=== PATIENT | male | born 1980 | race Caucasian/White ===

== ENCOUNTER 2018-08-08 03:45 | Observation (INO) | payer OTHER ==
[2018-08-08] MEDS ORDERED: NS 1,000 ML IV ONE (03:56)
[2018-08-08] MEDS ORDERED: ONDANSETRON 4 MG/2 ML VIAL IVP ONE (03:56)
[2018-08-08] MEDS ORDERED: KETOROLAC 15 MG/1 ML SDV IVP ONE (03:56)
--- NOTE | 2018-08-08 04:00 | EDPHY ---
H & P Stated Complaint: ABD PAIN AND VOMITING THIS EVENING Time Seen by Provider: 08/08/18 03:52 HPI/ROS: Chief Complaint: Abdominal pain HPI: 37-year-old male began having diffuse abdominal pain about 7 hr ago. Has been progressively worse. Some nausea vomiting. No diarrhea. Does feel little bit constipated. Does not have a history of similar pain in the past. Currently is a 7/10. Cannot find a position of comfort. It is generalized in his abdomen. There are no aggravating or alleviating factors. No urinary urgency or frequency. No dark urine. No prior abdominal surgeries. ROS: 10 systems were reviewed and were negative except those elements noted in the HPI. PMH: Attention deficit hyperactivity disorder Social History: No smoking, no alcohol, no recreational drug use Family History: non-contributory Physical Exam: Gen: Awake, Alert, uncomfortable appearing HEENT: Nose: no rhinorrhea Eyes: PERRLA, EOMI Mouth: Moist mucosa Neck: Supple, no JVD Chest: nontender, lungs clear to auscultation Heart: S1, S2 normal, no murmur Abd: Soft, moderate generalized tenderness with tenderness in the right side., no guarding Back: no CVA tenderness, no midline tenderness Ext: no edema, non-tender Skin: no rash Neuro: CN II-XII intact, Sensation grossly intact, Strength 5/5 in bilateral upper and lower extremities - Personal History Current Tetanus/Diphtheria Vaccine: Yes Current Tetanus Diphtheria and Acellular Pertussis (TDAP): Yes - Medical/Surgical History Hx Asthma: No Hx Chronic Respiratory Disease: No Hx Diabetes: No Hx Cardiac Disease: No Hx Renal Disease: No Hx Cirrhosis: No Hx Alcoholism: No Hx HIV/AIDS: No Hx Splenectomy or Spleen Trauma: No Other PMH: PT DENIES - Social History Smoking Status: Never smoked Constitutional: Initial Vital Signs Temperature (C) 36.5 C 08/08/18 03:46 Heart Rate 66 08/08/18 03:46 Respiratory Rate 22 H 08/08/18 03:46 Blood Pressure 130/88 H 08/08/18 03:46 O2 Sat (%) 100 08/08/18 03:46 O2 Delivery Mode Room Air Allergies/Adverse Reactions: No Known Allergies Allergy (Unverified 08/08/18 03:49) Home Medications: Medication Instructions Recorded ALPRAZolam [Xanax 0.5 MG (*)] 0.5 mg PO TID 08/08/18 Medical Decision Making - Diagnostics Imaging Results: ABD PEL W IV CONTRAST History: Low abd pain 90cc of [id number] Comparison: None available. Procedure: Multiple axial sections were obtained through the abdomen and pelvis after administration of intravenous contrast. Coronal and sagittal reconstruction images were obtained as well. Findings: Chest base: Lung bases are clear. Abdomen and pelvis: The appendix is fluid-filled enlarged measuring 9 mm in diameter. Equivocal periappendiceal fat stranding. Fluid and air-filled loops of proximal small bowel measuring at upper limits of normal in caliber without a transition point. Scattered small mesenteric lymph nodes that could represent benign reactive adenopathy. The gallbladder contains no radiopaque gallstones. No biliary ductal dilatation. No focal mass lesion is seen in the spleen, pancreas or kidneys. A few small focal calcifications is the left adrenal gland suggesting previous inflammatory change, infection or hemorrhage. No obstructive uropathy. No bladder stone. No acute disease of bone. Impression: 1. Enlarged fluid-filled appendix with equivocal surrounding inflammatory change. 2. Findings suggest appendicitis in the appropriate clinical setting. 3. Findings in proximal small bowel suggestive of adynamic ileus or enteritis. ELECTRONICALLY SIGNED BY: Lani Toussaint MD Aug 08, 2018 5:13:23 AM MDT ED Course/Re-evaluation: 37-year-old male presenting with abdominal pain, white count. CT scan is suggestive of acute appendicitis. I have paged the general surgeon. Ceftriaxone and Flagyl have been ordered. - Data Points Laboratory Results: Laboratory Results 08/08/18 04:09 08/08/18 04:09 08/08/18 08/08/18 08/08/18 05:01 04:09 04:09 WBC 21.83 10^3/uL H 10^3/uL (3.80-9.50) RBC 5.80 10^6/uL 10^6/uL (4.40-6.38) Hgb 17.1 g/dL g/dL (13.7-17.5) Hct 47.4 % % (40.0-51.0) MCV 81.7 fL fL (81.5-99.8) MCH 29.5 pg pg (27.9-34.1) MCHC 36.1 g/dL g/dL (32.4-36.7) RDW 13.5 % % (11.5-15.2) Plt Count 301 10^3/uL 10^3/uL (150-400) MPV 9.5 fL fL (8.7-11.7) Neut % (Auto) 85.1 % H % (39.3-74.2) Lymph % (Auto) 7.4 % L % (15.0-45.0) [place] % (Auto) 6.4 % % (4.5-13.0) Eos % (Auto) 0.4 % L % (0.6-7.6) Baso % (Auto) 0.2 % L % (0.3-1.7) Nucleat RBC Rel Count 0.0 % % (0.0-0.2) Absolute Neuts (auto) 18.56 10^3/uL H 10^3/uL (1.70-6.50) Absolute Lymphs (auto) 1.62 10^3/uL 10^3/uL (1.00-3.00) Absolute Monos (auto) 1.40 10^3/uL H 10^3/uL (0.30-0.80) Absolute Eos (auto) 0.09 10^3/uL 10^3/uL (0.03-0.40) Absolute Basos (auto) 0.05 10^3/uL 10^3/uL (0.02-0.10) Absolute Nucleated RBC 0.00 10^3/uL 10^3/uL (0-0.01) Immature Gran % 0.5 % % (0.0-1.1) Immature Gran # 0.11 10^3/uL H 10^3/uL (0.00-0.10) Sodium 141 mEq/L mEq/L (135-145) Potassium 4.1 mEq/L mEq/L (3.5-5.2) Chloride 103 mEq/L mEq/L (97-110) Carbon Dioxide 22 mEq/l mEq/l (22-31) Anion Gap 16 mEq/L H mEq/L (6-14) BUN 14 mg/dL mg/dL (7-23) Creatinine 1.2 mg/dL mg/dL (0.7-1.3) Estimated GFR > 60 Glucose 110 mg/dL H mg/dL (70-100) Calcium 10.7 mg/dL H mg/dL (8.5-10.4) Phosphorus 3.4 mg/dL mg/dL (2.5-4.5) Total Bilirubin 0.8 mg/dL mg/dL (0.1-1.4) AST 37 IU/L IU/L (17-59) ALT 74 IU/L H IU/L (21-72) Alkaline Phosphatase 88 IU/L IU/L (38-126) Total Protein 8.5 g/dL H g/dL (6.3-8.2) Albumin 5.3 g/dL H g/dL (3.5-5.0) Lipase 92 IU/L IU/L (23-300) Urine Color YELLOW Urine Appearance CLEAR Urine pH 7.0 (5.0-7.5) Ur Specific [place] > 1.060 H (1.002-1.030) Urine Protein NEGATIVE (NEGATIVE) Urine Ketones 2+ H (NEGATIVE) Urine Blood NEGATIVE (NEGATIVE) Urine Nitrate NEGATIVE (NEGATIVE) Urine Bilirubin NEGATIVE (NEGATIVE) Urine Urobilinogen NEGATIVE EU EU (0.2-1.0) Ur Leukocyte Esterase NEGATIVE (NEGATIVE) Urine Glucose NEGATIVE (NEGATIVE) Medications Given: Discontinued Medications Sodium Chloride (Ns) 1,000 mls @ 0 mls/hr IV ONCE ONE; Wide Open PRN Reason: Protocol Stop: 08/08/18 03:57 Last Admin: 08/08/18 04:06 Dose: 1,000 mls Ketorolac Tromethamine (Toradol) 15 mg IVP EDNOW ONE Stop: 08/08/18 03:57 Last Admin: 08/08/18 04:05 Dose: 15 mg Ondansetron HCl (Zofran) 4 mg IVP EDNOW ONE Stop: 08/08/18 03:57 Last Admin: 08/08/18 04:05 Dose: 4 mg Departure - Departure [facility] Clinical Impression: Acute appendicitis Condition: Fair Referrals: NONE *PRIMARY CARE P,. [Primary Care Provider] - As per Instructions
[2018-08-08 04:16] LABS: PLATELET COUNT 301 10^3/uL (150-400)
[2018-08-08] MEDS ORDERED: IOPAMIDOL (ISOVUE-300) 100 ML BTL ONE (04:30)
[2018-08-08] MEDS ORDERED: BUPIVACAINE/EPI 0.25% 30 ML SDV ONE (05:38)
--- NOTE | 2018-08-08 05:44 | PDGENHP ---
History and Physical - Chief Complaint abdominal pain - History of Present Illness Patient is an otherwise healthy 37yo M who presents with acute onset abdominal pain since last evening. Briefly, was in his usual state of health yesterday evening, began to have diffuse abdominal pain with nausea and vomiting. It persisted and worsened which prompted his presentation in the ED. Pain is colicky, sharp, 7/10 in intensity. Worse with deep palpation History Information - Allergies/Home Medication List Allergies/Adverse Reactions: No Known Allergies Allergy (Unverified 08/08/18 03:49) Home Medications: ALPRAZolam [Xanax 0.5 MG (*)] 0.5 mg PO TID 08/08/18 [Last Taken Unknown] I have personally reviewed and updated: family history, medical history, social history, surgical history - Past Medical History no pertinent PMH - Surgical History Reports: no pertinent surgical hx - Family History Positive for: non-pertinent - Social History Smoking Status: Never smoked Additional social history: and son at bedside Review of Systems Review of Systems: ROS: 10pt was reviewed & negative except for what was stated in HPI & below Physical Exam Physical Exam: Temp Pulse Resp BP Pulse Ox 36.7 C 63 16 131/78 H 98 08/08/18 05:27 08/08/18 05:27 08/08/18 05:27 08/08/18 05:27 08/08/18 05:27 Constitutional: no apparent distress, appears nourished, not in pain Eyes: PERRL, anicteric sclera, EOMI Ears, Nose, Mouth, Throat: moist mucous membranes, hearing normal, ears appear normal, no oral mucosal ulcers Cardiovascular: regular rate and rhythym, no murmur, rub, or gallop, No edema Respiratory: no respiratory distress, no rales or rhonchi, clear to auscultation Gastrointestinal: normoactive bowel sounds, no palpable masses, other (TTP in RLQ) Genitourinary: no bladder fullness, no bladder tenderness Skin: warm, normal color, no rashes or abrasions, no fluctuance, no induration, No mottled Musculoskeletal: full muscle strength, no muscle tenderness, normal joint ROM, no joint effusions Psychiatric: interacting appropriately, not anxious, not encephalopathic, thought process linear Lymph, Heme, Immunologic: no cervical LAD, no supraclavicular LAD Lab Data & Imaging Review 08/08/18 04:09 08/08/18 04:09 WBC 21.83 10^3/uL (3.80-9.50) H 08/08/18 04:09 RBC 5.80 10^6/uL (4.40-6.38) 08/08/18 04:09 Hgb 17.1 g/dL (13.7-17.5) 08/08/18 04:09 Hct 47.4 % (40.0-51.0) 08/08/18 04:09 MCV 81.7 fL (81.5-99.8) 08/08/18 04:09 MCH 29.5 pg (27.9-34.1) 08/08/18 04:09 MCHC 36.1 g/dL (32.4-36.7) 08/08/18 04:09 RDW 13.5 % (11.5-15.2) 08/08/18 04:09 Plt Count 301 10^3/uL (150-400) 08/08/18 04:09 MPV 9.5 fL (8.7-11.7) 08/08/18 04:09 Neut % (Auto) 85.1 % (39.3-74.2) H 08/08/18 04:09 Lymph % (Auto) 7.4 % (15.0-45.0) L 08/08/18 04:09 [place] % (Auto) 6.4 % (4.5-13.0) 08/08/18 04:09 Eos % (Auto) 0.4 % (0.6-7.6) L 08/08/18 04:09 Baso % (Auto) 0.2 % (0.3-1.7) L 08/08/18 04:09 Nucleat RBC Rel Count 0.0 % (0.0-0.2) 08/08/18 04:09 Absolute Neuts (auto) 18.56 10^3/uL (1.70-6.50) H 08/08/18 04:09 Absolute Lymphs (auto) 1.62 10^3/uL (1.00-3.00) 08/08/18 04:09 Absolute Monos (auto) 1.40 10^3/uL (0.30-0.80) H 08/08/18 04:09 Absolute Eos (auto) 0.09 10^3/uL (0.03-0.40) 08/08/18 04:09 Absolute Basos (auto) 0.05 10^3/uL (0.02-0.10) 08/08/18 04:09 Absolute Nucleated RBC 0.00 10^3/uL (0-0.01) 08/08/18 04:09 Immature Gran % 0.5 % (0.0-1.1) 08/08/18 04:09 Immature Gran # 0.11 10^3/uL (0.00-0.10) H 08/08/18 04:09 Sodium 141 mEq/L (135-145) 08/08/18 04:09 Potassium 4.1 mEq/L (3.5-5.2) 08/08/18 04:09 Chloride 103 mEq/L (97-110) 08/08/18 04:09 Carbon Dioxide 22 mEq/l (22-31) 08/08/18 04:09 Anion Gap 16 mEq/L (6-14) H 08/08/18 04:09 BUN 14 mg/dL (7-23) 08/08/18 04:09 Creatinine 1.2 mg/dL (0.7-1.3) 08/08/18 04:09 Estimated GFR > 60 08/08/18 04:09 Glucose 110 mg/dL (70-100) H 08/08/18 04:09 Calcium 10.7 mg/dL (8.5-10.4) H 08/08/18 04:09 Phosphorus 3.4 mg/dL (2.5-4.5) 08/08/18 04:09 Total Bilirubin 0.8 mg/dL (0.1-1.4) 08/08/18 04:09 AST 37 IU/L (17-59) 08/08/18 04:09 ALT 74 IU/L (21-72) H 08/08/18 04:09 Alkaline Phosphatase 88 IU/L (38-126) 08/08/18 04:09 Total Protein 8.5 g/dL (6.3-8.2) H 08/08/18 04:09 Albumin 5.3 g/dL (3.5-5.0) H 08/08/18 04:09 Lipase 92 IU/L (23-300) 08/08/18 04:09 Urine Color YELLOW 08/08/18 05:01 Urine Appearance CLEAR 08/08/18 05:01 Urine pH 7.0 (5.0-7.5) 08/08/18 05:01 Ur Specific [place] > 1.060 (1.002-1.030) H 08/08/18 05:01 Urine Protein NEGATIVE (NEGATIVE) 08/08/18 05:01 Urine Ketones 2+ (NEGATIVE) H 08/08/18 05:01 Urine Blood NEGATIVE (NEGATIVE) 08/08/18 05:01 Urine Nitrate NEGATIVE (NEGATIVE) 08/08/18 05:01 Urine Bilirubin NEGATIVE (NEGATIVE) 08/08/18 05:01 Urine Urobilinogen NEGATIVE EU (0.2-1.0) 08/08/18 05:01 Ur Leukocyte Esterase NEGATIVE (NEGATIVE) 08/08/18 05:01 Urine Glucose NEGATIVE (NEGATIVE) 08/08/18 05:01 Visualized and Interpreted imaging results: Yes Interpretation: CT: 9mm dilated fluid filled appendix, cw early appendicitis Assessment & Plan Assessment: Acute appendicitis (Acute) Plan: 37yo M c acute appendicitis - IV abx given in ED - to OR for laparoscopic appendectomy - RBA discussed with the patient
[2018-08-08] MEDS ORDERED: MIDAZOLAM 2 MG/2 ML VIAL ONE (06:19)
[2018-08-08] MEDS ORDERED: MIDAZOLAM 2 MG/2 ML VIAL IVP ONE (06:22)
--- NOTE | 2018-08-08 06:23 | PDANEPAE ---
ANE History of Present Illness lap obed ANE Past Medical History - Cardiovascular History Hx Hypertension: No Hx Arrhythmias: No Hx Chest Pain: No Hx Coronary Artery / Peripheral Vascular Disease: No Hx CHF / Valvular Disease: No Hx Palpitations: No - Pulmonary History Hx COPD: No Hx Asthma/Reactive Airway Disease: No Hx Recent Upper Respiratory Infection: No Hx Oxygen in Use at Home: No Hx Sleep Apnea: No - Neurologic History Hx Cerebrovascular Accident: No Hx Seizures: No Hx Dementia: No - Endocrine History Hx Diabetes: No Hypothyroid: No Hyperthyroid: No Obesity: no - Renal History Hx Renal Disorders: No - Liver History Hx Hepatic Disorders: No ANE Review of Systems Review of Systems: - Exercise capacity Exercise capacity: >=4 METS ANE Patient History - Allergies Allergies/Adverse Reactions: No Known Allergies Allergy (Unverified 08/08/18 03:49) - Home Medications Home medications: home medication list seen and reviewed Home Medications: ALPRAZolam [Xanax 0.5 MG (*)] 0.5 mg PO TID 08/08/18 [Last Taken Unknown] - NPO status NPO Status: no food or drink >8 hours NPO Since - Liquids (Date): 08/08/18 NPO Since - Liquids (Time): 02:00 NPO Since - Solids (Date): 08/07/18 NPO Since - Solids (Time): 15:00 - Anes Hx Anes Hx: no prior problems - Smoking Hx Smoking Status: Never smoked ANE Labs/Vital Signs - Labs Result Diagrams: 08/08/18 04:09 08/08/18 04:09 - Vital Signs Blood Pressure: 112/68 Heart Rate: 68 Respiratory Rate: 20 O2 Sat (%): 96 Height: 177.8 cm Weight: 77.111 kg ANE Physical Exam - Airway Mallampati Score: Class 2 Mouth exam: normal dental/mouth exam - Pulmonary Pulmonary: no respiratory distress - Cardiovascular Cardiovascular: regular rate and rhythym - ASA Status ASA Status: I ANE Anesthesia Plan Anesthesia Plan: general endotracheal anesthesia
[2018-08-08] MEDS ORDERED: fentaNYL 100 MCG/2 ML INJ ONE ×2 (06:25→07:40)
[2018-08-08] MEDS ORDERED: PROPOFOL 200 MG/20 ML VIAL ONE (06:25)
[2018-08-08] MEDS ORDERED: LIDOCAINE 2% 2 ML INJ ONE ×3 (06:26)
[2018-08-08] MEDS ORDERED: ROCURONIUM 50 MG/5 ML VIAL ONE (06:26)
[2018-08-08] MEDS ORDERED: DEXAMETHASONE 4 MG/ML VIAL ONE (06:26)
[2018-08-08] MEDS ORDERED: ONDANSETRON 4 MG/2 ML VIAL ONE ×2 (06:26→07:36)
[2018-08-08] MEDS ORDERED: SUCCINYLCHOLINE CHLORIDE 200 MG/10 ML SYR IVP ONE (06:26)
[2018-08-08] MEDS ORDERED: SUGAMMADEX SODIUM 200 MG/2 ML VIAL IVP ONE (06:56)
[2018-08-08] MEDS ORDERED: ONDANSETRON 4 MG/2 ML VIAL IVP PRN ×2 (07:14→07:21)
[2018-08-08] MEDS ORDERED: ACETAMINOPHEN 325 MG TAB PO PRN (07:14)
--- NOTE | 2018-08-08 07:14 | POSTOPPROG ---
Post Op Note Date of Operation: 08/08/18 Surgeon: David Inman Anesthesiologist: Сергей Anesthesia: GET(General Endotracheal) Pre-op Diagnosis: acute appendicitis Post-op Diagnosis: same Procedure: laparoscopic appendectomy Findings: acute, non perforated Inf/Abcess present in the surg proc area at time of surgery?: No EBL: Minimal Specimen(s): appendix
[2018-08-08] MEDS ORDERED: D5W 1/2 NS W/ 20 KCl/L 1,000 ML IV SCH (07:15)
[2018-08-08] MEDS ORDERED: NALOXONE HCL 0.4 MG/ML INJ IVP PRN (07:21)
[2018-08-08] MEDS ORDERED: ALBUTEROL 3 ML DEYVIAL IH PRN (07:21)
[2018-08-08] MEDS ORDERED: LR 500 ML IV PRN (07:21)
--- NOTE | 2018-08-08 07:22 | POSTANESTH ---
Post Anesthetic Evaluation Cardiovascular Status: Normal, Stable Respiratory Status: Normal, Stable Level of Consciousness/Mental Status: Can Participate in Eval Pain Control: Adequate, Prn Tx Ordered Nausea/Vomiting Control: Adequate, Prn Tx Ordered Complications Possibly Related to Anesthesia: None Noted
[2018-08-08] MEDS: fentaNYL 100 MCG/2 ML INJ IVP PRN ×2 (07:45→07:52)
[2018-08-08] MEDS: HYDROCODONE/APAP 5/325 TAB PO PRN ×3 (09:23→17:46)
[2018-08-08] MEDS ORDERED: IBUPROFEN 600 MG TAB PO SCH (14:00)
--- NOTE | 2018-08-08 14:13 | ASMTCASEMG ---
Living Arrangements What is your living Answers: Alone arrangement? Who do you live with? Type Of Residence What kind of residence do Answers: House you live in? Discharge Plan Comments Coordination Status Comments Notes: Patient is a 37yo male who has been admitted for acute appendicitis. He will get surgery, laparoscopic appendectomy. No therapies ordered. Patient will most likely d/c independently. CM available for any d/c needs that arise. Date Signed: 08/08/2018 02:13 PM Electronically Signed By:Hina Aleman LCSW
[2018-08-08 15:25] VITALS: BP 128/75
== END 2018-08-08 17:50 | disposition home or self-care (01) ==
LOC: F1N 09:00
PROVIDERS: ADMIT Surgery; ATTEND Surgery
PROC: 0DTJ4ZZ Resection of Appendix, Percutaneous Endoscopic Approach (ICD-10-PCS; principal; 2018-08-08 06:00)
DX: K35.80 Unspecified acute appendicitis (principal)
CPT/HCPCS: 44970; 74177; G0378; 96365; J0330; J0696; J1100; J1885; J2250; J2270; J2405; J2704; J3010; Q9967